=== PATIENT | male | born 1960 | race Caucasian/White ===

== ENCOUNTER 2016-05-25 11:15 | Emergency (ER) | payer OTHER ==
--- NOTE | 2016-05-25 12:54 | DIAGNOSTIC IMAGING REPORT ---
PROCEDURE: CT HEAD WITHOUT CONTRAST INDICATION: TRAUMA/INJURY TECHNIQUE: Axial CT images were acquired through the head. Coronal and sagittal reformations were created. COMPARISON: None. FINDINGS: No intracranial hemorrhage or extraaxial fluid collections. Ventricles are normal in size, shape and position. There is no mass, mass effect or midline shift. The vaca-white matter differentiation is normal. There is no edema. The calvarium is intact. The paranasal sinuses and mastoid air cells are normally aerated. The extracranial soft tissues and orbits are normal. IMPRESSION: 1. No CT evidence of acute intracranial process. 2. Findings discussed with Dr. Hodge at [address] scans at this facility use dose modulation, iterative reconstruction, and/or weight-based dosing when appropriate to reduce radiation dose to as low as reasonably achievable.
--- NOTE | 2016-05-25 13:24 | DIAGNOSTIC IMAGING REPORT ---
PROCEDURE: XR CHEST 2 VIEW INDICATION: INCREASED PAIN FROM RIB FRACTURE TECHNIQUE: Two views. COMPARISON: 07/24/2015 FINDINGS: The cardiomediastinal contour and central vasculature are within normal limits. There are small bilateral pleural effusions. No evidence of pneumothorax. Minor bibasilar pleural parenchymal stranding. Mildly displaced right-sided lateral rib fractures nine, 10, and possibly eight. Other osseous structures appear intact. IMPRESSION: 1. Two, possibly three right-sided lateral rib fractures. 2. Small bilateral pleural effusions and minor atelectatic changes. 3. No evidence for pneumothorax.
--- NOTE | 2016-05-25 14:05 | ED CLINICAL REPORT ---
Clinical Report - Physicians/Mid Levels [facility] [address] [place] [address] 05/25/2016 11:17 [id number]- By private vehicle. Historian- patient. HISTORY OF PRESENT ILLNESS Chief Complaint: FALL. Location of injuries- head (and right chest). The injury occurred about 10 days ago. Occurred at home. Fell down > 10 and many stairs. The patient complains of moderate pain. The patient sustained a blow to the head. No neck pain, loss of consciousness or seizure. Not dazed. REVIEW OF SYSTEMS All systems otherwise negative, except as recorded above. PAST HISTORY See nurses notes. Tetanus immunization status is up-to-date. Medications: TRAMADOL HCL 50MG 1 TAB. every 6 hrs.. PANTOPRAZOLE sOD 40MG 1 TAB DAILY. METOPROLOL TARTRATE 25 MG. 1 TAB TWICE DAILY. Lisinopril 10mg, 1 tab daliy. Spironolactone 50mg , 1 tab.daily. Hydrocodon 5-325 1 tab. every 8 hrs.. Methocarbamol 750mg tab. 1 tab daily. Was given methocarbomanol at clinic- hasn't been taking due to stomach pain got 3 days worth of Vicodin--out of these now. Lactulose Oral. Lisinopril Oral. Metoprolol Tartrate Oral. Pantoprazole Sodium Oral. Spironolactone Oral. Allergies: Sulfa Antibiotics. (Facial Swelling and Redness in the face). SOCIAL HISTORY Smoker- current status unknown. Alcohol use. No drug use. No recent travel. Is a local resident. ADDITIONAL NOTES The nursing notes have been reviewed. PHYSICAL EXAM Vital Signs: 05/25/2016 11:22 BP: 147/95. HR: 81. RR: 18. O2 saturation: 97%. Temp: 98.2 F. Pain level now: 5/10. Heart rate normal. Respiratory rate normal. Temperature normal. Oxygen saturation normal. Appearance: Alert. Oriented X3. No acute distress. (non-toxic). Head: Lee's sign. Head non-tender. No swelling of head. Eyes: Pupils equal, round and reactive to light. Pupillary exam: Right pupil round and reactive to light directly and consensually and with accommodation. Left pupil: 3mm, round and reactive to light directly and consensually and with accommodation. EOM intact. ENT: No dental injury. No hemotympanum. Pharynx normal. No malocclusion. Neck: No decreased ROM or muscle spasm in the neck. No pain with movement of head/neck. Painless ROM. Non-tender. No vertebral tenderness. CVS: Heart sounds normal. Pulses normal. Respiratory: Chest wall injury. (right midaxillary tenderness without crepitus or overlying skin changes.). Breath sounds normal. No rales, wheezes, rhonchi or crepitus. Abdomen: No visible injury. Soft and nontender. Bowel sounds normal. No mass. Back: No tenderness. ROM normal. Skin: Skin intact. Skin warm and dry. Normal skin color. Normal skin turgor. Extremities: Normal inspection. Pelvis stable. Extremities atraumatic. No lower extremity edema. Neuro: Pillsbury Coma Scale: 15- eyes open spontaneously (4); best verbal response- oriented x 3 (5); best motor response- obeys commands (6). Oriented X 3. No alteration in mental status. No motor deficit. No sensory deficit. LABS, X-RAYS, AND EKG Chest X-ray: (PROCEDURE: XR CHEST 2 VIEW INDICATION: INCREASED PAIN FROM RIB FRACTURE TECHNIQUE: Two views. COMPARISON: 07/24/2015 FINDINGS: The cardiomediastinal contour and central vasculature are within normal limits. There are small bilateral pleural effusions. No evidence of pneumothorax. Minor bibasilar pleural parenchymal stranding. Mildly displaced right-sided lateral rib fractures nine, 10, and possibly eight. Other osseous structures appear intact. IMPRESSION: 1. Two, possibly three right-sided lateral rib fractures. 2. Small bilateral pleural effusions and minor atelectatic changes.). Views: PA and lateral. The X-rays were independently viewed by me and interpreted by the radiologist. The X-rays were discussed with the radiologist (via pacs). CT Head: (PROCEDURE: CT HEAD WITHOUT CONTRAST INDICATION: TRAUMA/INJURY TECHNIQUE: Axial CT images were acquired through the head. Coronal and sagittal reformations were created. COMPARISON: None. FINDINGS: No intracranial hemorrhage or extraaxial fluid collections. Ventricles are normal in size, shape and position. There is no mass, mass effect or midline shift. The vaca-white matter differentiation is normal. There is no edema. The calvarium is intact. The paranasal sinuses and mastoid air cells are normally aerated. The extracranial soft tissues and orbits are normal. IMPRESSION: 1. No CT evidence of acute intracranial process.). The study was independently viewed by me and interpreted by the radiologist. The study was discussed with the radiologist (vai phone and pacs). Laboratory Tests: CBC w Diff: (DARRICK: 05/25/2016 11:50) ( MsgRcvd 05/25/2016 12:12) Final results Test Result Flag Units (Reference) WHITE BLOOD COUNT 10.4 K/uL (4.5-11.5) RED BLOOD COUNT 4.04 L M/uL (4.50-5.90) HEMOGLOBIN 13.4 L gm/dL (13.5-17.5) HEMATOCRIT 39.4 L % (41.0-53.0) MEAN CELL VOLUME 98 fL (80-100) MEAN CORPUSCULAR HGB 33 pg (26-34) MEAN CORPUSCULAR HGB CONC 34 g/dL (31-37) RED CELL DISTRIBUTION WIDTH 16.0 H % (11.6-14.8) PLATELET COUNT 199 K/uL (150-400) NEUTROPHIL % 71.6 % (50-75) LYMPH % 16.6 L % (25-40) MONO % 8.9 % (3-14) EOSINOPHIL % 2.1 % (0-4) BASOPHIL % 0.8 % (0-2) PT with INR: (DARRICK: 05/25/2016 11:50) ( MsgRcvd 05/25/2016 12:19) Final results Test Result Flag Units (Reference) INR 1.1 (0.8-1.2) Low Intensity Therapy: INR 1.5-2.0 PT range 18.5-23.1Mod.Intensity Therapy: INR 2.0-3.0 PT range 23.1-31.5High Intensity Therapy: INR 2.5-3.5 PT range 27.4-35.5High Intensity Therapy 2: INR 3.0-4.0 PT range 31.5-39.3 APTT 27 SECONDS (24-34) CMP: (DARRICK: 05/25/2016 11:50) ( MsgRcvd 05/25/2016 12:27) Final results Test Result Flag Units (Reference) GLUCOSE 102 mg/dL (70-110) BUN 5 L mg/dL (7-18) CREATININE 0.6 mg/dL (0.6-1.3) Estimated GFR >60 mL/min Estimated GFR- >60 mL/min Note: Persistent reduction over 3 months in eGFR<60 mL/min/1.73 m2 defines CKD. Patients with eGFR values>=60 mL/min/1.73 m2 may also have CKD if evidence ofpersistent proteinuria. Additional information may be foundat www.kidney.org. SODIUM 136 mmol/L (136-145) POTASSIUM 3.2 L mmol/L (3.5-5.1) CHLORIDE 98 mmol/L (98-107) CARBON DIOXIDE 27 mmol/L (21-32) CALCIUM 8.6 mg/dL (8.5-10.1) TOTAL PROTEIN 7.1 g/dL (6.4-8.2) ALBUMIN 3.3 g/dL (3.3-5.0) BILIRUBIN, TOTAL 2.1 H mg/dL (0.0-1.0) ALKALINE PHOSPHATASE 187 H U/L (46-116) AST (SGOT) 46 H U/L (15-37) ALT (SGPT) 36 U/L (12-78) . PROGRESS AND PROCEDURES Course of Care: the patient is a pleasant 55-year-old male presented for evaluation of head injury and right-sided rib pain after falling downa significant amount of stairs. Because of the patient's mechanism of injury patient wascalled as a modified trauma. Injury occurred approximately 10 days ago. Patient reports noother worsening painexcept for the persistent right-sided rib pain from the fall. At this time patient will be evaluated for the lee signs noted on examination with a head CT scan. Patient also been evaluated with chest x-ray for evaluation of pneumothorax orpneumonia as itresult of the rib fractures and possibledecreased ventilation. Labs have also been ordered. Patient is resting in bed and in no acute distress. No other signs of trauma on examination or history. Patient is also agreeable to the treatment and plan. Workup does not show any acute abnormalities. Patient with normalhead CT scan. Chest x-ray appears to be unchanged from prior described rib fractures. No pneumothorax Cesarpneumonia noted. Labs are also otherwise unremarkable. Coagulation studies are also negative. Because the patient's injury had occurred approximately 10 days and patient is neurovascularly intact and with otherwise normal vital signs, do not feel patient needs stated to the hospital require further emergency workup/evaluation. Patient will be instructed to follow-up with his doctor and return for any worsening of symptoms. Discussed with patient workup, diagnosis, home care, follow-up, and return precautions. All questions have been answered. The patient expressed understanding of these instructions and was agreeable to them. CLINICAL IMPRESSION 05/25/2016 11:22 BP: 147/95. HR: 81. RR: 18. O2 saturation: 97%. Temp: 98.2 F. Pain level now: 5/10. Hypertensive. Oxygen saturation normal. Multiple right rib fractures (subsequent encounter). Essential hypertension. Major closed head injury. Unknown whether a loss of consciousness occurred. Memory loss. (acute). INSTRUCTIONS Warnings: GENERAL WARNINGS: Return or contact your physician immediately if your condition worsens or changes unexpectedly, if not improving as expected, or if other problems arise. SPECIFICALLY, return if you develop weakness, numbness, tingling, pain or incontinence. vision changes, worsening vision, or other concerns. Your Current Medications: CONTINUE TAKING THE FOLLOWING MEDICATIONS: got 3 days worth of Vicodin--out of these now*. Hydrocodon 5-325 1 tab. every 8 hrs.*. Lactulose Oral. Lisinopril 10mg, 1 tab daliy*. Lisinopril Oral. Methocarbamol 750mg tab. 1 tab daily*. METOPROLOL TARTRATE 25 MG. 1 TAB TWICE DAILY*. Metoprolol Tartrate Oral. PANTOPRAZOLE sOD 40MG 1 TAB DAILY*. Pantoprazole Sodium Oral. Spironolactone 50mg , 1 tab.daily*. Spironolactone Oral. TRAMADOL HCL 50MG 1 TAB. every 6 hrs.*. Was given methocarbomanol at clinic- hasn't been taking due to stomach pain *. Prescription Medications: Oxycodone 5 mg tablets: take 1-2 orally every 6 hours as needed for pain. Dispense fifteen (15). No refill. Follow-up: Return to the emergency department as needed. Follow up with your doctor in two days. Reason for referral: recheck today's concerns. Summary of care provided to patient via paper. Screening today revealed the patient's blood pressure to be in the hypertensive range. The patient should follow up with a primary care provider for blood pressure management. Understanding of the discharge instructions verbalized by patient. (Electronically signed by Joon Hodge Dr. 05/27/2016 2:56)
--- NOTE | 2016-05-25 14:05 | ED ORDER SUMMARY ---
..... Patient: CHADWICK CALABRESE OrderSheet [facility] VisitID: [id number] [address] [place] [address] 55y, M Registration Date/Time: 05/25/2016 ORDER SHEET Weight: 87.9 kg (stated) Allergies: Sulfa Antibiotics GENERAL ORDERS: Chest 2V Urgent (11:44 05/25/2016 Nadine Driscoll) (Ack 11:46 Jennifre) (12:23 DDean R.N.) CT Head wo Cont Urgent (11:45 05/25/2016 Nadine Driscoll) (Ack 11:46 Jennifer) (13:35 DDean R.N.) CBC w Diff Urgent (11:45 05/25/2016 Nadine Driscoll) (Ack 11:46 Jennifer) (12:05 DDean R.N.) CMP Urgent (11:45 05/25/2016 Nadine Driscoll) (Ack 11:46 Jennifer) (12:05 DDean R.N.) PT with INR Urgent (11:45 05/25/2016 Nadine Driscoll) (Ack 11:46 Jennifer) (12:05 DDean R.N.) PTT Urgent (11:45 05/25/2016 Nadine Driscoll) (Ack 11:46 Jennifer) (12:05 DDean R.N.) MEDICATION ORDERS: IV FLUIDS: Morphine IV 4 mg (HIGH ALERT MEDICATION, NOW) (11:45 05/25/2016 Nadine Driscoll) (12:24 DDean R.N.) IV Saline Lock (11:45 05/25/2016 Nadine Driscoll) (Ack 11:45 DDean R.N.) (12:24 DDean R.N.) ORDER SHEET NOTES: [Electronically signed by Mario Castellanos R.N. (15:05/25/2016)] [Electronically signed by Joon Hodge Dr. (02:56 05/27/2016)] [Electronically locked/signed by Mario Castellanos R.N. (15:05/25/2016)]
--- NOTE | 2016-05-25 14:05 | ED NURSING NOTES ---
Clinical Report - Nurses [facility] [address] [place] [address] 05/25/2016 11:17 Patient: CHADWICK CALABRESE TRIAGE Triage time 1122. Acuity: LEVEL 3. Chief Complaint: FALL (fell down 15 stairs opn May 17 had LOC. pt was seen at clinic on Thursday- with fx rib. Now c/o continued headaches, vomiting, light headdedness and increased pain in chest --especially when trying to breath deep --"I feel like I'm not getting enough oxygen in). DOMINIC COMA SCORE: Dominic Coma Scale: 15- eyes open spontaneously (4); best verbal response- oriented x 4 (5); best motor response- obeys commands (6). --11:37 Elin Archer R.N. 11:22 05/25/16. BP: 147/95. HR: 81. RR: 18. O2 saturation: 97%. Temp: 98.2 F. Pain level now: 07/30. Additional comments: ribs and headache . --11:37 Elin Archer R.N. Triage time 1122. Chief Complaint: FALL (Modified Trauma Code called on this pt due to mechanism of injury and signs of injury present dispite time delay). --12:23 Elin Archer R.N. Weight: 87.9 kg stated. Height/Length: 69.5 inches Per Patient. BMI: 28.2. --11:30 Elin Archer R.N. Medications Lactulose Oral. Lisinopril Oral. Metoprolol Tartrate Oral. Pantoprazole Sodium Oral. Spironolactone Oral. --11:29 Elin Archer R.N. got 3 days worth of Vicodin--out of these now. --11:35 Elin Archer R.N. Was given methocarbomanol at clinic- hasn't been taking due to stomach pain . --11:37 Gianni, Elin, R.N. Methocarbamol 750mg tab. 1 tab daily. --13:01 Nations, Kathia, ER Tech1 Hydrocodon 5-325 1 tab. every 8 hrs.. --13:01 Nations, Kathia, ER Tech1 Spironolactone 50mg , 1 tab.daily. --13:02 Nations, Kathia, ER Tech1 Lisinopril 10mg, 1 tab daliy. --13:02 Nations, Kathia, ER Tech1 METOPROLOL TARTRATE 25 MG. 1 TAB TWICE DAILY. --13:03 Nations, Kathia, ER Tech1 PANTOPRAZOLE sOD 40MG 1 TAB DAILY. --13:03 Nations, Kathia, ER Tech1 TRAMADOL HCL 50MG 1 TAB. every 6 hrs.. --13:04 Nations, Kathia, ER Tech1. Allergies Sulfa Antibiotics. (Facial Swelling and Redness in the face) --11:29 Elin Archer R.N. History Arrived by private vehicle. Historian: patient. Unaccompanied. Primary physician (alexa). The patient had loss of consciousness. He has had dizziness. ( pt has bruising to back of left ear/back of head on that side). SOCIAL HX: Light tobacco smoker (cigarette)- less than 1/2 a pack per day. Alcohol use; consumes beer occasionally. No drug use. --11:37 Elin Archer R.N. PROBLEMS: Hepatic Encephalopathy. Gastroesophageal Reflux Disease. Esophageal Varices. Hypertension. Cirrhosis. Hepatitis C carrier. --11:28 Elin Archer R.N. ADDITIONAL SURGERIES: Esophageal Banding. Knee Surgery. TKR x 2. --11:28 Elin Archer R.N. Interventions ID band on patient. To treatment room. --11:37 Elin Archer R.N. PHYSICAL ASSESSMENT 11:22. Ambulatory to room. Patient gowned. GENERAL / NEURO / PSYCH: Alert. Oriented X 4. Appears in pain. HEENT: Head: ecchymosis present in the left parietal area (bruising behind left ear). RESPIRATORY: Mild respiratory distress. Chest wall injury. Chest wall tenderness. CVS: Capillary refill less than 2 seconds. GI / : Abdomen soft. SKIN: Skin is warm and dry. --11:40 Elin Archer R.N. NURSING PROGRESS NOTES 11:22. Extremity elevated. Patient gowned. Reassurance given. Patient identifiers checked. Call light placed in reach. Side rails up. Bed placed in lowest position. Patient ready for evaluation- chart flagged. --11:38 Elin Archer R.N. 11:50 05/25/2016 Site #1 started via IV in the right antecubital space with an 18g angiocath, with aseptic technique and good blood return; one attempt. Blood drawn: rainbow set. Labeled in the presence of the patient and sent to the lab. --12:09 Elin Archer R.N. 11:58. Patient transported to radiology and CT by stretcher with tech. --12:10 Elin Archer R.N. 12:15 05/25/2016 Morphine IVP 4 mg given over 1 minute(s) via site #1. Sedative warning given to the patient. IV patency established. IV site checked: no pain, redness, or swelling. IV flushed thoroughly pre- and post-medication administration. IVP given by RN. --12:24 Elin Archer R.N. 12:13. Patient returned from radiology and CT by stretcher with tech. --12:25 Elin Archer R.N. 12:15 05/25/16. BP: 175/104. HR: 74. RR: 18. O2 saturation: 98%. Temp: deferred. Pain level now: 3/10. Additional comments: 3= ribs, head still 5. --12:58 Elin Archer R.N. 12:45. ( Pt resting, watching t.v., waiting for ct results). --12:58 Elin Archer R.N. 13:20. DOMINIC COMA SCORE: Dominic Coma Scale: 15- eyes open spontaneously (4); best verbal response- oriented x 4 (5); best motor response- obeys commands (6). --14:55 Elin Archer R.N. 13:20 05/25/16. BP: 172/94. HR: 76. RR: 18. O2 saturation: 97%. Temp: deferred. Pain level now: 3/10. Additional comments: 3 ribs, 5 head. --14:55 Elin Archer R.N. DISPOSITION / DISCHARGE Departure time: 14:16 May 25 2016. Condition at departure: improved. No learning barriers present. Discharge instructions provided and reviewed with the patient. Reviewed warnings. Reviewed medication(s). Treatments reviewed. Reviewed referrals. Patient verbalized understanding. Written instructions provided in Austrian. The patient was discharged home and accompanied by slot operations director. He left the Emergency Department ambulatory and via private vehicle. [employer] Reading [employer] driving. ( Reported BP to MD). --14:16 Mario Castellanos R.N. 14:15 05/25/16. BP: 168/92. HR: 80. RR: 18. O2 saturation: 96%. Temp: 98.4 F. Pain level now 2/10. --14:16 Mario Castellanos R.N. 14:00 05/25/2016 Site #1 removed upon discharge. Catheter intact. Pressure dressing applied. --15:00 Mario Castellanos R.N. Locked/Released at 05/25/2016 15:00 by Mario Castellanos R.N.
--- NOTE | 2016-05-25 14:05 | ED ORDER SUMMARY ---
..... Patient: CHADWICK CALABRESE OrderSheet [facility] VisitID: [id number] [address] [place] [address] 55y, M Registration Date/Time: 05/25/2016 ORDER SHEET Weight: 87.9 kg (stated) Allergies: Sulfa Antibiotics GENERAL ORDERS: Chest 2V Urgent (11:44 05/25/2016 Nadine Driscoll) (Ack 11:46 Jennifer) (12:23 DDean R.N.) CT Head wo Cont Urgent (11:45 05/25/2016 Nadine Driscoll) (Ack 11:46 Jennifer) (13:35 DDean R.N.) CBC w Diff Urgent (11:45 05/25/2016 Nadine Driscoll) (Ack 11:46 Jennifer) (12:05 DDean R.N.) CMP Urgent (11:45 05/25/2016 Nadine Driscoll) (Ack 11:46 Jennifer) (12:05 DDean R.N.) PT with INR Urgent (11:45 05/25/2016 Nadine Driscoll) (Ack 11:46 Jennifer) (12:05 DDean R.N.) PTT Urgent (11:45 05/25/2016 Nadine Driscoll) (Ack 11:46 Jennifer) (12:05 DDean R.N.) MEDICATION ORDERS: IV FLUIDS: Morphine IV 4 mg (HIGH ALERT MEDICATION, NOW) (11:45 05/25/2016 Nadine Driscoll) (12:24 DDean R.N.) IV Saline Lock (11:45 05/25/2016 Nadine Driscoll) (Ack 11:45 DDean R.N.) (12:24 DDean R.N.) ORDER SHEET NOTES: [Electronically signed by Mario Castellanos R.N. (15:05/25/2016)] [Electronically signed by Joon Hodge Dr. (02:56 05/27/2016)] [Electronically locked/signed by Mario Castellanos R.N. (15:05/25/2016)]
--- NOTE | 2016-05-27 02:57 | ED MED RECONCILIATION SUMMARY ---
Patient: CHADWICK CALABRESE Medication Reconciliation Report [facility] VisitID: [id number] [address] [place] [address] 55y, M Registration Date/Time: 05/25/2016 Weight: 87.9 kg Height/Length: (not available) BMI: 28.2 ALLERGIES: Sulfa Antibiotics The patient's Home Medications are listed below: CONTINUE TAKING THE FOLLOWING MEDICATIONS: got 3 days worth of Vicodin--out of these now Hydrocodon 5-325 1 tab. every 8 hrs. Lactulose Oral Lisinopril 10mg, 1 tab daliy Lisinopril Oral Methocarbamol 750mg tab. 1 tab daily METOPROLOL TARTRATE 25 MG. 1 TAB TWICE DAILY Metoprolol Tartrate Oral PANTOPRAZOLE sOD 40MG 1 TAB DAILY Pantoprazole Sodium Oral Spironolactone 50mg , 1 tab.daily Spironolactone Oral TRAMADOL HCL 50MG 1 TAB. every 6 hrs. Was given methocarbomanol at clinic- hasn't been taking due to stomach pain The source(s) of the original Home Medication information: Not obtained. The following Medications were given to the patient in the Emergency Department: Morphine [IVP] IVP 4 mg, administered: 05/25/2016 12:15:00 PM The following Medications were prescribed to the patient: Oxycodone 5 mg tablets: take 1-2 orally every 6 hours as needed for pain. Dispense fifteen (15). No refill. -- Joon Hodge Dr.
--- NOTE | 2016-05-27 02:57 | ED MAR SUMMARY ---
..... Medication Administration Record [facility] [address] [place] [address] Patient: CHADWICK CALABRESE Visit ID: [id number] 55y, M Weight: 87.9 kg Height/Length: 69.5 in BMI: 28.2 ALLERGIES: Sulfa Antibiotics Given 12:15 05/25/2016 Gianni, Elin ROlinda. Medication Administered: MORPHINE [IVP], Dose: 4 mg IVP over 1 minute(s), Site: #1 right AC. Medication Ordered: Morphine IV 4 mg (HIGH ALERT MEDICATION, NOW).
--- NOTE | 2016-05-27 02:57 | ED DISCHARGE INSTRUCTIONS ---
Patient: CHADWICK CALABRESE General Instructions [facility] VisitID: [id number] [address] [place] [address] 55y, M Registration Date/Time: 05/25/2016 05/25/2016 11:22 BP: 147/95. HR: 81. RR: 18. O2 saturation: 97%. Temp: 98.2 F. Pain level now: 07/30. Hypertensive. Oxygen saturation normal. Multiple right rib fractures (subsequent encounter). Essential hypertension. Major closed head injury. Unknown whether a loss of consciousness occurred. Memory loss. (acute). INSTRUCTIONS Warnings: GENERAL WARNINGS: Return or contact your physician immediately if your condition worsens or changes unexpectedly, if not improving as expected, or if other problems arise. SPECIFICALLY, return if you develop weakness, numbness, tingling, pain or incontinence. vision changes, worsening vision, or other concerns. Your Current Medications: CONTINUE TAKING THE FOLLOWING MEDICATIONS: got 3 days worth of Vicodin--out of these now*. Hydrocodon 5-325 1 tab. every 8 hrs.*. Lactulose Oral. Lisinopril 10mg, 1 tab daliy*. Lisinopril Oral. Methocarbamol 750mg tab. 1 tab daily*. METOPROLOL TARTRATE 25 MG. 1 TAB TWICE DAILY*. Metoprolol Tartrate Oral. PANTOPRAZOLE sOD 40MG 1 TAB DAILY*. Pantoprazole Sodium Oral. Spironolactone 50mg , 1 tab.daily*. Spironolactone Oral. TRAMADOL HCL 50MG 1 TAB. every 6 hrs.*. Was given methocarbomanol at clinic- hasn't been taking due to stomach pain *. Prescription Medications: Oxycodone 5 mg tablets: take 1-2 orally every 6 hours as needed for pain. Dispense fifteen (15). No refill. Follow-up: Return to the emergency department as needed. Follow up with your doctor in two days. Reason for referral: recheck today's concerns. Summary of care provided to patient via paper. Screening today revealed the patient's blood pressure to be in the hypertensive range. The patient should follow up with a primary care provider for blood pressure management. Understanding of the discharge instructions verbalized by patient. ADDITIONAL INFORMATION High Blood Pressure --Established High Blood Pressure (Hypertension) is a chronic disease. The cause is unknown in most cases. It can usually be controlled with lifestyle changes and/or medicines. Symptoms of high blood pressure may include headache, dizziness, visual changes, chest pain and shortness of breath. Sometimes it causes no symptoms at all. However, even if there are no symptoms, untreated high blood pressure increases the risk of heart attack, also known as acute myocardial infarction, or AMI, and stroke. It is a serious health risk and should not be ignored. A normal blood pressure is 120/80 or less. The first (top) number is the "systolic" pressure. The second (bottom) number is the "diastolic" pressure. Hypertension exists when either the top number is 140 or higher, OR the bottom number is 90 or higher on repeated measurements. Home Care: All patients with high blood pressure should do the following to lower their pressure. If you are on medicines, then these methods may reduce or eliminate your need for medicines in the future. Begin a weight loss program if you are overweight. Reduce your salt intake. Avoid high salt foods (olives, pickles, smoked meats, salted potato chips, etc.). Do not add salt to your food at the table. Use only small amounts of salt when cooking. Begin an exercise program. Discuss with your doctor what type of exercise program would be best for you. It doesn't have to be difficult. Even brisk walking for 20 minutes three times a week is a good form of exercise. Avoid medicines which contain heart stimulants. This includes many cold and sinus decongestant pills and sprays as well as diet pills. Check the warnings about hypertension on the label. Stimulants such as amphetamine or cocaine could be lethal for someone with hypertension. Never take these. Limit your caffeine intake or switch to caffeine-free products. Stop smoking. If you are a long-time smoker, this can be hard. Enroll in a stop-smoking program to improve your chance of success. Learning how to handle stress better is an important part of any program to lower blood pressure. Learn about relaxation methods such as meditation, yoga or biofeedback. If medicines were prescribed, take them exactly as directed. Missing doses may cause your blood pressure get out of control. Consider buying an automatic blood pressure machine (available at most pharmacies). Use this to monitor your blood pressure at home and report the results to your doctor. Follow Up: Regular visits to your own physician for blood pressure checks and medicine adjustment is an important part of your care. Make a follow-up appointment as directed by our staff. Get Prompt Medical Attention if any of the following occur: Chest pain or shortness of breath Severe headache Throbbing or rushing sound in the ears Nosebleed Sudden severe abdominal pain Extreme drowsiness, confusion or fainting Dizziness or vertigo (dizziness with spinning sensation) Weakness of an arm or leg or one side of the face Difficulty with speech or vision Rib Fracture You have a fracture (break) of one or more ribs. Rib fractures do not require a cast like other bones. They will heal by themselves in about 4-6 weeks. The first 3-4 weeks will be the most painful because deep breathing, coughing or changing position from sitting to lying down, may cause the broken ends to move slightly. Home Care: Rest. You should not be doing any heavy lifting or strenuous exertion until the pain goes away. Because it hurts to breathe when you have a broken rib, there is risk of getting pneumonia from poor airflow through your lungs. To prevent this: Take four very deep breaths at least four times a day (exhale through pursed lips as if you are blowing up a balloon). If an "incentive spirometer" (breathing exercise device) was given to you, use it at least four times a day, or as directed. Apply an ice pack (ice cubes in a plastic bag, wrapped in a towel) over the injured area for 20 minutes every 1-2 hours the first day. Continue with ice packs 3-4 times a day for the next two days, then as needed for the relief of pain and swelling. You may use acetaminophen (Tylenol) or ibuprofen (Motrin, Advil) to control pain, unless another pain medicine was prescribed. [NOTE: If you have chronic liver or kidney disease or ever had a stomach ulcer or GI bleeding, talk with your doctor before using these medicines.] If your pain is not controlled by the treatment given, contact your doctor. Sometimes a stronger pain medicine may be needed. A nerve block (numbing the nerve between the ribs) can be performed in case of severe pain. Follow Up with your doctor during the next week, or as advised. Rarely, a broken rib will cause complications within the first few days that may not be evident during your initial exam (such as, collapsed lung, bleeding around the lung or into the abdomen, or pneumonia). Therefore, watch for the signs below. [NOTE: If x-rays were taken, they will be reviewed by a radiologist. You will be notified of any new findings that may affect your care.] Get Prompt Medical Attention if any of the following occur: Shortness of breath Increasing chest pain with breathing Dizziness, weakness or fainting New or worsening abdominal pain Fever of 100.4F (38C) or higher, or as directed by your healthcare provider Congested cough Concussion (No Wake-Up) A concussion happens when you hit your head with enough force to shake up the brain. This may cause you to lose consciousness be "knocked out" - but not always. Depending on how hard you hit your head, it will take from a few hours up to a few days to get better. Sometimes symptoms may last a few months or longer. This is called post-concussion syndrome. At first, you may have a headache, nausea, vomiting, or dizziness. You may also have problems concentrating or remembering things. This is normal. Symptoms should get better as the hours and days go by. Symptoms that get worse could be a sign of a more serious injury. This might be a bruise or bleeding in the brain. Thats why its important to watch for the warning signs listed below. Home care Follow these tips to help care for yourself at home: During the next day (24 hours) someone must stay with you to check for the signs below. If your face or scalp swells, apply an ice pack for 20 minutes every 1 to 2 hours. Do this until the swelling starts to go down. You can make an ice pack by putting ice cubes in a plastic bag and wrapping the bag in a towel. for 20 minutes every 1-2 hours until the swelling starts to go down. You may use acetaminophen to control pain, unless another pain medicine was prescribed. If you have chronic liver or kidney disease, talk with your doctor before using these medicines. Also talk with your doctor if you ever had a stomach ulcer or GI bleeding. For the next 24 hours: Dont drink alcohol or take sedatives or medicines that make you sleepy. Dont drive or operate machinery. Avoid doing anything strenuous. Dont lift or strain. Dont return to sports or any activity that could cause you to hit your head until all symptoms are gone and you have been cleared by your doctor. A second head injury before fully recovering from the first one can lead to serious brain injury. Follow-up care Follow up with your doctor in 1 week, or as directed. Note: A radiologist will review any X-rays or CT scans that were taken. You will be told of any new findings that may affect your care. When to seek medical care Get prompt medical attention if any of these occur: Repeated vomiting Headache or dizziness that is severe or gets worse Unusual drowsiness, or unable to wake up as usual Confusion or change in behavior or speech, or memory loss Blurred vision Convulsion (seizure) Swelling on the scalp or face that gets worse Redness, warmth, or pus from the swollen area Fluid draining from or bleeding from the nose or ears Oxycodone Hydrochloride, Acetaminophen Oral tablet What is this medicine? ACETAMINOPHEN; OXYCODONE (a set a MICHAEL idalia fen; ox i KOE done) is a pain reliever. It is used to treat mild to moderate pain. How should I use this medicine? Take this medicine by mouth with a full glass of water. Follow the directions on the prescription label. Take your medicine at regular intervals. Do not take your medicine more often than directed. Talk to your health records technology teacher regarding the use of this medicine in children. Special care may be needed. Patients over 65 years old may have a stronger reaction and need a smaller dose. What side effects may I notice from receiving this medicine? Side effects that you should report to your doctor or health direct care counselor as soon as possible: allergic reactions like skin rash, itching or hives, swelling of the face, lips, or tongue breathing difficulties, wheezing confusion light headedness or fainting spells severe stomach pain yellowing of the skin or the whites of the eyes Side effects that usually do not require medical attention (report to your doctor or health direct care counselor if they continue or are bothersome): dizziness drowsiness nausea vomiting What may interact with this medicine? alcohol antihistamines barbiturates like amobarbital, butalbital, butabarbital, methohexital, pentobarbital, phenobarbital, thiopental, and secobarbital benztropine drugs for bladder problems like solifenacin, trospium, oxybutynin, tolterodine, hyoscyamine, and methscopolamine drugs for breathing problems like ipratropium and tiotropium drugs for certain stomach or intestine problems like propantheline, homatropine methylbromide, glycopyrrolate, atropine, belladonna, and dicyclomine general anesthetics like etomidate, ketamine, nitrous oxide, propofol, desflurane, enflurane, halothane, isoflurane, and sevoflurane medicines for depression, anxiety, or psychotic disturbances medicines for sleep muscle relaxants naltrexone narcotic medicines (opiates) for pain phenothiazines like perphenazine, thioridazine, chlorpromazine, mesoridazine, fluphenazine, prochlorperazine, promazine, and trifluoperazine scopolamine tramadol trihexyphenidyl What if I miss a dose? If you miss a dose, take it as soon as you can. If it is almost time for your next dose, take only that dose. Do not take double or extra doses. Where should I keep my medicine? Keep out of the reach of children. This medicine can be abused. Keep your medicine in a safe place to protect it from theft. Do not share this medicine with anyone. Selling or giving away this medicine is dangerous and against the law. Store at room temperature between 20 and 25 degrees C (68 and 77 degrees F). Keep container tightly closed. Protect from light. This medicine may cause accidental overdose and if it is taken by other adults, children, or pets. Flush any unused medicine down the toilet to reduce the chance of harm. Do not use the medicine after the expiration date. What should I tell my health care provider before I take this medicine? They need to know if you have any of these conditions: brain tumor Crohn's disease, inflammatory bowel disease, or ulcerative colitis drink more than 3 alcohol containing drinks per day drug abuse or addiction head injury heart or circulation problems kidney disease or problems going to the bathroom liver disease lung disease, asthma, or breathing problems an unusual or allergic reaction to acetaminophen, oxycodone, other opioid analgesics, other medicines, foods, dyes, or preservatives or trying to get breast-feeding What should I watch for while using this medicine? Tell your doctor or health direct care counselor if your pain does not go away, if it gets worse, or if you have new or a different type of pain. You may develop tolerance to the medicine. Tolerance means that you will need a higher dose of the medication for pain relief. Tolerance is normal and is expected if you take this medicine for a long time. Do not suddenly stop taking your medicine because you may develop a severe reaction. Your body becomes used to the medicine. This does NOT mean you are addicted. Addiction is a behavior related to getting and using a drug for a non-medical reason. If you have pain, you have a medical reason to take pain medicine. Your doctor will tell you how much medicine to take. If your doctor wants you to stop the medicine, the dose will be slowly lowered over time to avoid any side effects. You may get drowsy or dizzy. Do not drive, use machinery, or do anything that needs mental alertness until you know how this medicine affects you. Do not stand or sit up quickly, especially if you are an older patient. This reduces the risk of dizzy or fainting spells. Alcohol may interfere with the effect of this medicine. Avoid alcoholic drinks. There are different types of narcotic medicines (opiates) for pain. If you take more than one type at the same time, you may have more side effects. Give your health care provider a list of all medicines you use. Your doctor will tell you how much medicine to take. Do not take more medicine than directed. Call emergency for help if you have problems breathing. The medicine will cause constipation. Try to have a bowel movement at least every 2 to 3 days. If you do not have a bowel movement for 3 days, call your doctor or health direct care counselor. Do not take Tylenol (acetaminophen) or medicines that have acetaminophen with this medicine. Too much acetaminophen can be very dangerous. Many nonprescription medicines contain acetaminophen. Always read the labels carefully to avoid taking more acetaminophen. You have been given the following additional information: Hypertension, Established Fracture, Rib Concussion, No Wake-Up Oxycodone Hydrochloride, Acetaminophen Oral tablet (Electronically signed by Joon Hodge Dr. 05/27/2016 2:56)
--- NOTE | 2016-05-27 02:57 | ED MAR SUMMARY ---
..... Medication Administration Record [facility] [address] [place] [address] Patient: CHADWICK CALABRESE Visit ID: [id number] 55y, M Weight: 87.9 kg Height/Length: 69.5 in BMI: 28.2 ALLERGIES: Sulfa Antibiotics Given 12:15 05/25/2016 Gianni, Elin ROlinda. Medication Administered: MORPHINE [IVP], Dose: 4 mg IVP over 1 minute(s), Site: #1 right AC. Medication Ordered: Morphine IV 4 mg (HIGH ALERT MEDICATION, NOW).
--- NOTE | 2016-05-27 02:57 | ED MED RECONCILIATION SUMMARY ---
Patient: CHADWICK CALABRESE Medication Reconciliation Report [facility] VisitID: [id number] [address] [place] [address] 55y, M Registration Date/Time: 05/25/2016 Weight: 87.9 kg Height/Length: (not available) BMI: 28.2 ALLERGIES: Sulfa Antibiotics The patient's Home Medications are listed below: CONTINUE TAKING THE FOLLOWING MEDICATIONS: got 3 days worth of Vicodin--out of these now Hydrocodon 5-325 1 tab. every 8 hrs. Lactulose Oral Lisinopril 10mg, 1 tab daliy Lisinopril Oral Methocarbamol 750mg tab. 1 tab daily METOPROLOL TARTRATE 25 MG. 1 TAB TWICE DAILY Metoprolol Tartrate Oral PANTOPRAZOLE sOD 40MG 1 TAB DAILY Pantoprazole Sodium Oral Spironolactone 50mg , 1 tab.daily Spironolactone Oral TRAMADOL HCL 50MG 1 TAB. every 6 hrs. Was given methocarbomanol at clinic- hasn't been taking due to stomach pain The source(s) of the original Home Medication information: Not obtained. The following Medications were given to the patient in the Emergency Department: Morphine [IVP] IVP 4 mg, administered: 05/25/2016 12:15:00 PM The following Medications were prescribed to the patient: Oxycodone 5 mg tablets: take 1-2 orally every 6 hours as needed for pain. Dispense fifteen (15). No refill. -- Joon Hodge Dr.
== END 2016-05-25 14:10 | disposition home or self-care (01) ==
LOC: ED SRH 11:15
DX: S22.41XD Multiple fractures of ribs, right side, subsequent encounter for fracture with routine healing (principal); W10.8XXD Fall (on) (from) other stairs and steps, subsequent encounter; S09.90XD Unspecified injury of head, subsequent encounter; Y93.9 Activity, unspecified; Y92.009 Unspecified place in unspecified non-institutional (private) residence as the place of occurrence of the external cause; Y99.9 Unspecified external cause status; R41.3 Other amnesia; I10 Essential (primary) hypertension; Z79.899 Other long term (current) drug therapy; Z79.891 Long term (current) use of opiate analgesic
CPT/HCPCS: 90100; 94001; 94060; 95059